=== PATIENT | female | born 1995 | race Caucasian/White ===

== ENCOUNTER 2025-05-06 06:44 | Outpatient (REF) | payer OTHER, SELFPAY ==
--- OUTSIDE RECORDS SUMMARY | 2025-05-06 06:47 | XMS_ITS | Clinical Summary ---
Author Organization [facility] Address [address] [place] [address] Phone Care Team Providers Care Commercial Real Estate Paralegal Name Role Phone Eugenio Castillo MD Primary Care Provider [phone] Allergies No known active allergies Medications albuterol HFA (PROAIR HFA ; PROVENTIL HFA ; VENTOLIN HFA) 90 mcg/actuation inhaler Inhale 2 Puffs into the lungs every 4 hours as needed for Cough, Wheezing or Shortness of Breath. 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 ([facility] V24) 11/03/2023 Morbid obesity ([facility] V24, [facility] V28) 2023 COVID-19 virus infection 04/28/2020 Moderate persistent asthma without complication 12/09/2019 GERD (gastroesophageal reflux disease) 8 Immunizations Name Administration Dates Next Due Influenza Quadravalent, MDCK , 0.5ml, preservative free (Flucelvax) 6mo and older 11/02/2020 Influenza trivalent, 0.5mL, preservative free (Fluarix; FluLaval; Fluzone) ages 6mo and older (Afluria) 3 years and older 05/24/2016 Measles 01/18/2021 Mumps 01/18/2021 PPD Test 01/18/2021 Rubella 01/18/2021 Tdap Tetanus diptheria acell ular pertussis (Boostrix; Adacel) 7yo and older 04/23/2016 Varicella live (Varivax) 12mo and older 01/19/20 21 Medical History Medical History Date Comments GERD (gastroesophageal reflux disease) 8 DX:GERD (gastroesophageal reflux disease) Prediabetes DX:Prediabetes Social History Tobacco Use Types Packs/Day Years Used Date Smoking Tobacco: Some Days Smokeless Tobacco: Former Quit: 10/31/2023 Comments Unknown Sex and Gender Information Value Date Recorded Sex Assigned at Not on file Legal Sex Female 8:22 AM EST Gender Identity Not on file Sexual Orientation Not on file Obstetrics History Last Filed Vital Signs Vital Sign Reading Time Taken Comments Blood Pressure 131/79 01/18/2025 9:37 AM EDT Pulse 81 01/18/2025 9:37 AM EDT Temperature 37 C (98.6 F) 01/18/2025 9:37 AM EDT Respiratory Rate - - Oxygen Saturation 98% 01/18/2025 9:37 AM EDT Inhaled Oxygen Concentration - - Weight 109 kg (241 lb) 01/18/2025 9:37 AM EDT Height 163.8 cm (5' 4.5 ) 07/12/2024 10:39 AM ES T Body Mass Index 40.73 07/12/2024 10:39 AM EST Plan of Treatment Health Maintenance Due Date Last Done Comments COVID-19 Vaccine (#1) 1999 Hepatitis B Vaccines (1 of 3 - 19+ 3-dose series) 2013 Pneumococcal Vaccine: Pediatrics (0 to 5 Years) and At-Risk Patients (6 to 49 Years) (1 of 2 - PCV) 2013 Cervical Cancer Screening: P ap Smear 2015 Social Influencers of Health Screening 08/04/2022 Depression Screening 09/01/2024 03/16/2024 Influenza Vaccine (#1) 2025 , 05/24/2016 DTaP,Tdap,and Td Vaccines (2 - Td or Tdap) 04/23/2026 04/23/2016 Cholesterol Screening (Lipid Panel) 11/02/2028 11/03/2023 Varicella Vaccines Aged Out 01/18/2021 No longer eligible based on patient's age to complete this topic HIV Screening Completed 01/22/2021 Hepatitis C Screening Completed 01/22/2021 HIB Vaccines Aged Out No longer eligi ble based on patient's age to complete this topic HPV Vaccines Aged Out No longer eligi ble based on patient's age to complete this topic Hepatitis A Vaccines Aged Out No long er eligible based on patient's age to complete this topic IPV Vaccines Aged Out No longer eligi ble based on patient's age to complete this topic MMR Vaccines Aged Out No longer eligi ble based on patient's age to complete this topic Meningococcal ACWY Vaccine Aged Out N o longer eligible based on patient's age to complete this topic Meningococcal B Vaccine Aged Out No l onger eligible based on patient's age to complete this topic RSV Immunization Patients Under 20 months Aged Out No longer eligible b ased on patient's age to complete this topic Procedures Procedure Name Priority Date/Time Associated Diagnosis Comments DEPRESSION SCREENING Routine 03/16/2024 LIPID PANEL Routine 11/03/2023 HEPATITIS C SCREENING Routine 01/22/2021 HIV SCREENING Routine 01/22/2021 from Last 3 Months or Most Recently Relevant to Health Maintenance Results * Depression Screening (03/16/2024) [facility] Depression Screening Abstracted [facility] Provider HEALTH MAINTENANCE Final Result * Lipid panel (11/03/2023) [facility] LDL/HDL Ratio 3 0 - 4 Triglycerides 84 0 - 150 mg/dL Cholesterol 161 0 - 200 mg/dL HDL 63 >=40 mg/dL LDL Cholesterol 82 0 - 100 mg/dL Blood Venous blood specimen / Unknown Historical Provider LAB BLOOD ORDERABLES Anita l Result * HIV Screening (01/22/2021) [facility] HIV Screening Abstracted [facility] Provider HEALTH MAINTENANCE Final Result * Hepatitis C Screening (01/22/2021) [facility] Hepatitis C Screening Abstracted us Historical Provider HEALTH MAINTENANCE Final Result from Last 3 Months or Most Recently Relevant to Health Maintenance [place] [address] [place] [address] [employer] Care Teams Commercial Real Estate Paralegal Relationship Specialty Start Date End Date Eugenio Castillo MD [address] [place] [id number] PCP - General Internal Medicine 07/02/24
--- OUTSIDE RECORDS SUMMARY | 2025-05-06 06:48 | XMS_ITS | Clinical Summary ---
Author Organization [facility] Address [address] [place] [address] Care Team Providers Care Principal Technical Architect Name Role Phone Eugenio Castillo MD Primary Care Provider [phone] Allergies Active Allergy Reactions Criticality Noted Date Comments Animal Dander 12/30/2023 ANIMAL FUR AND ROACHES Medications No known medications Active Problems Problem Noted Date Diagnosed Date Neutrophilia 12/30/2023 Social History Tobacco Use Types Packs/Day Years Used Date Smoking Tobacco: Never Assessed Sex and Gender Information Value Date Recorded Sex Assigned at Not on file Gender Identity Not on file Sexual Orientation Not on file Job Start Date Occupation Industry Not on file Not on file Not on file Last Filed Vital Signs Vital Sign Reading Time Taken Comments Blood Pressure 120/61 12/30/2023 2:25 PM EDT Pulse 87 12/30/2023 2:25 PM EDT Temperature 37.2 C (98.9 F) 12/30/2023 2:25 PM EDT Respiratory Rate - - Oxygen Saturation 100% 12/30/2023 2:25 PM EDT Inhaled Oxygen Concentration - - Weight 113.1 kg (249 lb 6.4 oz) 12/30/2023 2:25 PM EDT Height 163.8 cm (5' 4.5 ) 12/30/2023 2:25 PM EDT Body Mass Index 42.15 12/30/2023 2:25 PM EDT Plan of Treatment Health Maintenance Due Date Last Done Comments Hepatitis B Vaccines (1 of 3 - 3-dose series) 1994 Hepatitis C Screening 1994 COVID-19 Vaccine (#1) 1999 Pneumococcal Vaccine (1 of 2 - PCV) 2000 Depression Screening 2006 Preventative Health Evaluation 2012 Cervical Cancer Screening (P ap Smear) 2015 Influenza Vaccine (#1) 2025 11/02/2020 DTap / Tdap / Td (2 - Td or Tdap) 04/23/2026 016 RSV Ped < 20 months Aged Out No longe r eligible based on patient's age to complete this topic Care Teams Principal Technical Architect Relationship Specialty Start Date End Date Eugenio Castillo MD PCP - General Internal Medicine 11/25/23
== END 2025-05-06 06:45 | disposition home or self-care (01) ==
LOC: HO.HOSX 06:44
PROVIDERS: Visit Provider Physician Assistant
DX: Z13.89 Encounter for screening for other disorder (principal)